=== PATIENT | female | born 1945 | race Caucasian/White ===

== ENCOUNTER 2018-10-30 10:46 | Inpatient (IN) ==
[2018-10-30] MEDS ORDERED: SODIUM CHLORIDE 0.9% 500 ML IV STA (11:10)
[2018-10-30 11:43] LABS: Basophils # 0.1 10*3/uL (0.0-0.2); Basophils % 0.3 % (0.0-0.8); Hematocrit 38.6 VOL% (35.7-47.0); Hemoglobin 13.4 GM/DL (12.0-16.0); Immature Granulocytes Absolute 0.21 #; Lymphocytes # 0.8 10*3/uL (1.4-4.0); Lymphocytes % 3.8 % (21.3-54.2); Mean Corpuscular HGB Conc 34.7 GM/DL (32-36); Mean Corpuscular Hemoglobin 33 PG (27-34); Mean Corpuscular Volume 94.6 FL (87-102); Mean Platelet Volume 11.8 FL (9.6-12.0); Monocytes # 2.1 10*3/uL (0.11-0.8); Monocytes % 10.4 % (1.7-12.7); NRBC # 0.05 10*3/uL; Neutrophils % 84.5 % (38.7-73.9); Platelet Count 219 T/CUMM (130-400); Red Blood Count 4.08 MC/CUMM (3.8-5.5); Red Cell Distribution Width 19.7 % (9.3-17.3); White Blood Count 20.1 T/CUMM (4-12)
[2018-10-30 12:06] LABS: Apearance,Urine Slightly Hazy (Clear); Bilirubin,Urine Negative (Negative); Blood, Urine Negative (Negative); Glucose,Urine (UA) Negative (Negative); Hyaline Casts,Urine 15 /LPF (0-3); Ketones,Urine Negative (Negative); Mucus,Urine Occasional /LPF (Occasional); Nitrite,Urine Negative (Negative); Protein,Urine Negative; Urine Color Amber (Yellow); Urine Specific Gravity 1.017 (1.001-1.035); WBC,Urine 1 /HPF (0-6)
[2018-10-30 12:16] LABS: Albumin 2.1 G/DL (3.4-5.0); Bilirubin,Total 3.1 MG/DL (0.2-1.0); Calcium 10.1 MG/DL (8.5-10.1); Osmolality,Calculated 289.4 MOS/KG (273-304); Potassium 5.4 MMOL/L (3.5-5.1); Total Protein 6.8 G/DL (6.4-8.3)
[2018-10-30 12:27] LABS: Anisocytosis 1+; Band Neutrophils 1 % (0-10); Lymphocytes 4 % (20-55); Macrocytosis 1+; Polychromasia 1+; Segmented Neutrophils 85 % (50-85); Total Cells Counted 100
[2018-10-30 12:28] LABS: Platelet Estimate Normal; Poikilocytosis 1+; Target Cells 1+
[2018-10-30] MEDS ORDERED: cefTRIAXone 1,000 MG in SODIUM CHLORIDE 0.9% 100 ML IV STA (12:53)
[2018-10-30] MEDS ORDERED: SODIUM CHLORIDE 0.9% 1,000 ML IV STA (12:56)
[2018-10-30] MEDS ORDERED: PROMETHAZINE 25 MG TABLET PO PRN (15:38)
[2018-10-30] MEDS ORDERED: DOCUSATE SODIUM 100 MG CAPSULE PO PRN (15:38)
[2018-10-30] MEDS ORDERED: ONDANSETRON 4 MG/2 ML VIAL IV PRN (15:38)
[2018-10-30] MEDS ORDERED: ALBUMIN 25% 25 GM in PREMIX 1 EACH IV ONE (15:38)
[2018-10-30] MEDS ORDERED: ZALEPLON 5 MG CAPSULE PO PRN (15:38)
[2018-10-30] MEDS ORDERED: guaiFENesin/DM ER 600-30 MG TABLET PO PRN (15:38)
[2018-10-30] MEDS ORDERED: hydrALAZINE 20 MG/1 ML VIAL IV PRN (15:38)
[2018-10-30] MEDS ORDERED: ENOXAPARIN 30 MG/0.3 ML SYRINGE SUBCUT SCH (15:38)
[2018-10-30 16:43] LABS: INR 1.2; PT Patient Result 13.1 SECS
[2018-10-30] MEDS: SODIUM CHLORIDE 0.9% 1,000 ML IV SCH (16:50)
[2018-10-30] MEDS: MEROPENEM 500 MG in SODIUM CHLORIDE 0.9% 100 ML IV SCH (17:02)
[2018-10-30 17:04] LABS: Troponin I 0.055 NG/ML (0.00-0.045)
[2018-10-30] MEDS: MIRTAZAPINE 15 MG TABLET PO SCH (20:41)
[2018-10-30] MEDS: CALCIUM (CARBONATE)/VITAMIN D 600 MG-400 UNIT TABLET PO SCH (20:41)
[2018-10-30] MEDS: rOPINIRole 0.25 MG TABLET PO SCH (20:42)
[2018-10-30] MEDS: GLUCOSAMINE 500 MG TABLET PO SCH (20:42)
[2018-10-30] MEDS: LACTULOSE 20 GM/30 ML UDCUP PO SCH (20:43)
[2018-10-30] MEDS ORDERED: ASCORBIC ACID 500 MG TABLET PO SCH (21:00)
[2018-10-30] MEDS ORDERED: [UNRECOGNIZED DRUG - OTHER] PO SCH (21:00)
[2018-10-30] MEDS ORDERED: COENZYME Q10 100 MG CAPSULE PO SCH (21:00)
[2018-10-31 04:48] LABS: Basophils # 0.1 10*3/uL (0.0-0.2); Basophils % 0.3 % (0.0-0.8); Hematocrit 35.7 VOL% (35.7-47.0); Hemoglobin 11.9 GM/DL (12.0-16.0); Immature Granulocytes % 1.1 %; Immature Granulocytes Absolute 0.21 #; Lymphocytes # 1.2 10*3/uL (1.4-4.0); Lymphocytes % 6.1 % (21.3-54.2); Mean Corpuscular HGB Conc 33.3 GM/DL (32-36); Mean Corpuscular Hemoglobin 32 PG (27-34); Mean Corpuscular Volume 96.5 FL (87-102); Mean Platelet Volume 12.5 FL (9.6-12.0); Monocytes # 2.2 10*3/uL (0.11-0.8); Monocytes % 11.3 % (1.7-12.7); NRBC # 0.03 10*3/uL; Neutrophils # 15.5 10*3/uL (1.4-7.4); Neutrophils % 81.2 % (38.7-73.9); Platelet Count 214 T/CUMM (130-400); Red Cell Distribution Width 20.6 % (9.3-17.3); White Blood Count 19.1 T/CUMM (4-12)
[2018-10-31 05:16] LABS: Alanine Aminotransferase 298 U/L (13-56); Albumin 2.5 G/DL (3.4-5.0); Alkaline Phosphatase 1204 U/L (45-117); Aspartate Amino Transferase 1075 U/L (0-37); Blood Urea Nitrogen 81 MG/DL (7-18); Calcium 10.3 MG/DL (8.5-10.1); Cholesterol 166 MG/DL (50-200); Glucose 114 MG/DL (74-106); HDL Cholesterol 11 MG/DL (40-60); Osmolality,Calculated 294.1 MOS/KG (273-304); Potassium 4.9 MMOL/L (3.5-5.1); Risk Ratio 15.09; Sodium 135 MMOL/L (136-145); Total Protein 6.9 G/DL (6.4-8.3); Triglycerides 95 MG/DL (2-150)
[2018-10-31 05:18] LABS: Troponin I 0.048 NG/ML (0.00-0.045)
[2018-10-31] MEDS: SODIUM CHLORIDE 0.9% 1,000 ML IV SCH (06:03)
[2018-10-31] MEDS: MEROPENEM 500 MG in SODIUM CHLORIDE 0.9% 100 ML IV SCH ×2 (06:04→16:59)
[2018-10-31] MEDS ORDERED: MULTIVITAMIN (CENTRUM) TABLET PO SCH (09:00)
[2018-10-31] MEDS: GLUCOSAMINE 500 MG TABLET PO SCH ×2 (11:21→20:50)
[2018-10-31] MEDS: LACTULOSE 20 GM/30 ML UDCUP PO SCH ×2 (11:21→20:50)
[2018-10-31] MEDS: PANTOPRAZOLE 40 MG TABLET PO SCH (11:21)
[2018-10-31] MEDS: CALCIUM (CARBONATE)/VITAMIN D 600 MG-400 UNIT TABLET PO SCH ×2 (11:21→20:50)
[2018-10-31] MEDS: CLINDAMYCIN INJ 300 MG in PREMIX 1 EACH IV SCH ×3 (11:24→22:50)
[2018-10-31 12:22] LABS: Neutrophils,Peritoneal Fluid 51 %
[2018-10-31 12:23] LABS: RBC,Peritoneal Fluid 417 T/CUMM
[2018-10-31 12:45] LABS: Amylase,Peritoneal Fluid 30 U/L; Glucose,Peritoneal Fluid 126 MG/DL; LDH,Peritoneal Fluid 68 U/L; Total Protein,Peritoneal Fluid < 1.0 G/DL
[2018-10-31] MEDS ORDERED: DEXTROSE 5% IV ONE (13:00)
[2018-10-31] MEDS ORDERED: OXALIPLATIN IV ONE (13:00)
[2018-10-31] MEDS ORDERED: diphenhydrAMINE 50 MG/1 ML VIAL IV ONE (13:00)
[2018-10-31] MEDS ORDERED: DEXAMETHASONE 10 MG/1 ML VIAL IV ONE (13:00)
[2018-10-31] MEDS: GRANISETRON 1 MG/1 ML VIAL IV SCH (14:16)
[2018-10-31] MEDS: HYDROCORTISONE 2.5% CREAM 30 GM TUBE TOP SCH (16:37)
[2018-10-31] MEDS: FLUOROURACIL 1,500 MG in SODIUM CHLORIDE 0.9% 1,000 ML IV SCH (18:01)
[2018-10-31] MEDS: rOPINIRole 0.25 MG TABLET PO SCH (20:50)
[2018-10-31] MEDS: MIRTAZAPINE 15 MG TABLET PO SCH (20:50)
[2018-10-31] MEDS: MORPHINE 4 MG/1 ML VIAL IV PRN (20:51)
[2018-11-01] MEDS: SODIUM CHLORIDE 0.9% 1,000 ML IV SCH ×2 (00:45→16:22)
[2018-11-01] MEDS: MEROPENEM 500 MG in SODIUM CHLORIDE 0.9% 100 ML IV SCH ×2 (03:56→16:22)
[2018-11-01 05:04] LABS: Basophils % 0.1 % (0.0-0.8); Hematocrit 31.7 VOL% (35.7-47.0); Hemoglobin 10.6 GM/DL (12.0-16.0); Immature Granulocytes % 0.8 %; Lymphocytes # 0.6 10*3/uL (1.4-4.0); Lymphocytes % 5.1 % (21.3-54.2); Mean Corpuscular HGB Conc 33.4 GM/DL (32-36); Mean Corpuscular Hemoglobin 32 PG (27-34); Mean Corpuscular Volume 96.4 FL (87-102); Mean Platelet Volume 12.5 FL (9.6-12.0); Monocytes # 0.5 10*3/uL (0.11-0.8); Monocytes % 4.2 % (1.7-12.7); Neutrophils % 89.8 % (38.7-73.9); Platelet Count 156 T/CUMM (130-400); Red Blood Count 3.29 MC/CUMM (3.8-5.5); Red Cell Distribution Width 20.5 % (9.3-17.3); White Blood Count 12.3 T/CUMM (4-12)
[2018-11-01] MEDS: CLINDAMYCIN INJ 300 MG in PREMIX 1 EACH IV SCH ×4 (05:41→22:05)
[2018-11-01 05:46] LABS: Albumin 1.9 G/DL (3.4-5.0); Bilirubin,Total 4.1 MG/DL (0.2-1.0); Calcium 9.9 MG/DL (8.5-10.1); Osmolality,Calculated 307.4 MOS/KG (273-304); Potassium 5.2 MMOL/L (3.5-5.1); Total Protein 5.8 G/DL (6.4-8.3)
[2018-11-01] MEDS: CALCIUM (CARBONATE)/VITAMIN D 600 MG-400 UNIT TABLET PO SCH ×2 (10:17→20:34)
[2018-11-01] MEDS: LACTULOSE 20 GM/30 ML UDCUP PO SCH ×2 (10:20→20:35)
[2018-11-01] MEDS: GLUCOSAMINE 500 MG TABLET PO SCH ×2 (10:21→20:35)
[2018-11-01] MEDS: HYDROCORTISONE 2.5% CREAM 30 GM TUBE TOP SCH (10:21)
[2018-11-01] MEDS: GRANISETRON 1 MG/1 ML VIAL IV SCH (10:21)
[2018-11-01] MEDS: PANTOPRAZOLE 40 MG TABLET PO SCH (10:22)
[2018-11-01] MEDS ORDERED: MULTIVITAMIN INJ 10 ML in AMINO ACIDS/DEXT/LYTES 5-15% 2,000 ML IV SCH (17:00)
[2018-11-01] MEDS: FAT EMULSION 20% 250 ML IV SCH (18:29)
[2018-11-01] MEDS: FLUOROURACIL 1,500 MG in SODIUM CHLORIDE 0.9% 1,000 ML IV SCH (18:30)
[2018-11-01] MEDS: rOPINIRole 0.25 MG TABLET PO SCH (20:35)
[2018-11-01] MEDS: MIRTAZAPINE 15 MG TABLET PO SCH (20:35)
[2018-11-02] MEDS: MORPHINE 4 MG/1 ML VIAL IV PRN ×2 (01:38→22:20)
[2018-11-02] MEDS: MEROPENEM 500 MG in SODIUM CHLORIDE 0.9% 100 ML IV SCH ×2 (03:47→15:14)
[2018-11-02 04:26] LABS: Basophils % 0.1 % (0.0-0.8); Hematocrit 37.3 VOL% (35.7-47.0); Hemoglobin 12.7 GM/DL (12.0-16.0); Immature Granulocytes % 1.1 %; Immature Granulocytes Absolute 0.17 #; Lymphocytes # 0.5 10*3/uL (1.4-4.0); Lymphocytes % 3.1 % (21.3-54.2); Mean Corpuscular Hemoglobin 33 PG (27-34); Mean Corpuscular Volume 95.9 FL (87-102); Mean Platelet Volume 12.3 FL (9.6-12.0); Monocytes % 6.3 % (1.7-12.7); Neutrophils # 14.4 10*3/uL (1.4-7.4); Neutrophils % 89.4 % (38.7-73.9); Platelet Count 196 T/CUMM (130-400); Red Blood Count 3.89 MC/CUMM (3.8-5.5); Red Cell Distribution Width 21.2 % (9.3-17.3); White Blood Count 16.1 T/CUMM (4-12)
[2018-11-02 04:38] LABS: Calcium 9.7 MG/DL (8.5-10.1); Osmolality,Calculated 308.7 MOS/KG (273-304); Potassium 4.9 MMOL/L (3.5-5.1); Prealbumin 11.4 MG/DL (20-40)
[2018-11-02 04:52] LABS: Albumin 1.9 G/DL (3.4-5.0); Bilirubin,Total 4.2 MG/DL (0.2-1.0); Calcium 9.5 MG/DL (8.5-10.1); Osmolality,Calculated 307.8 MOS/KG (273-304); Potassium 5.5 MMOL/L (3.5-5.1); Total Protein 5.8 G/DL (6.4-8.3)
[2018-11-02 05:02] LABS: Lymphocytes 1 % (20-55); Segmented Neutrophils 94 % (50-85); Total Cells Counted 100
[2018-11-02 05:03] LABS: Hypochromasia 1+; Platelet Estimate Adequate
[2018-11-02] MEDS: CLINDAMYCIN INJ 300 MG in PREMIX 1 EACH IV SCH (05:53)
[2018-11-02] MEDS: GRANISETRON 1 MG/1 ML VIAL IV SCH (09:54)
[2018-11-02] MEDS: SODIUM CHLORIDE 0.9% 1,000 ML IV SCH (10:00)
[2018-11-02] MEDS: MULTIVITAMIN INJ 10 ML in AMINO ACIDS/DEXT/LYTES 5-15% 2,000 ML IV SCH (17:17)
[2018-11-02] MEDS: LACTULOSE 20 GM/30 ML UDCUP PO SCH ×2 (17:17→21:10)
[2018-11-02] MEDS: FAT EMULSION 20% 250 ML IV SCH (17:18)
[2018-11-02 17:27] LABS: Apearance,Urine CLEAR (Clear); Bilirubin,Urine Negative (Negative); Blood, Urine Negative (Negative); Glucose,Urine (UA) Negative (Negative); Hyaline Casts,Urine 1 /LPF (0-3); Ketones,Urine Negative (Negative); Nitrite,Urine Negative (Negative); Protein,Urine Negative; Urine Color Yellow (Yellow); Urine Specific Gravity 1.016 (1.001-1.035); Urine Urobilinogen < 2.0 EU/DL (0.2-1.0)
[2018-11-02] MEDS: HYDROCORTISONE 2.5% CREAM 30 GM TUBE TOP SCH (18:32)
[2018-11-02] MEDS: GLUCOSAMINE 500 MG TABLET PO SCH ×2 (18:32→21:09)
[2018-11-02] MEDS: CALCIUM (CARBONATE)/VITAMIN D 600 MG-400 UNIT TABLET PO SCH ×2 (18:32→21:10)
[2018-11-02] MEDS: PANTOPRAZOLE 40 MG TABLET PO SCH (18:32)
[2018-11-02] MEDS: rOPINIRole 0.25 MG TABLET PO SCH (21:09)
[2018-11-02] MEDS: MIRTAZAPINE 15 MG TABLET PO SCH (21:09)
[2018-11-02] MEDS ORDERED: SODIUM CHLORIDE 0.65% NASAL SPRAY 45 ML BOTTLE BOTH NARES PRN (22:35)
[2018-11-03] MEDS: MORPHINE 4 MG/1 ML VIAL IV PRN ×4 (03:23→22:55)
[2018-11-03] MEDS: MEROPENEM 500 MG in SODIUM CHLORIDE 0.9% 100 ML IV SCH ×2 (03:32→15:06)
[2018-11-03 04:45] LABS: Basophils % 0.1 % (0.0-0.8); Hematocrit 37.7 VOL% (35.7-47.0); Hemoglobin 12.8 GM/DL (12.0-16.0); Immature Granulocytes % 0.7 %; Immature Granulocytes Absolute 0.09 #; Lymphocytes # 0.7 10*3/uL (1.4-4.0); Lymphocytes % 5.8 % (21.3-54.2); Mean Corpuscular Hemoglobin 32 PG (27-34); Mean Corpuscular Volume 95.2 FL (87-102); Mean Platelet Volume 12.8 FL (9.6-12.0); Monocytes # 0.3 10*3/uL (0.11-0.8); NRBC # 0.02 10*3/uL; Neutrophils # 11.3 10*3/uL (1.4-7.4); Neutrophils % 91.4 % (38.7-73.9); Platelet Count 163 T/CUMM (130-400); Red Blood Count 3.96 MC/CUMM (3.8-5.5); Red Cell Distribution Width 21.1 % (9.3-17.3); White Blood Count 12.3 T/CUMM (4-12)
[2018-11-03 05:19] LABS: Albumin 1.9 G/DL (3.4-5.0); Bilirubin,Total 3.2 MG/DL (0.2-1.0); Calcium 9.7 MG/DL (8.5-10.1); Osmolality,Calculated 310.4 MOS/KG (273-304)
[2018-11-03 05:24] LABS: Lymphocytes 6 % (20-55); Segmented Neutrophils 93 % (50-85); Total Cells Counted 100
[2018-11-03 05:25] LABS: Platelet Estimate Adequate; Polychromasia Few
[2018-11-03] MEDS ORDERED: METOPROLOL TARTRATE 5 MG/5 ML VIAL IV ONE (08:26)
[2018-11-03] MEDS: CALCIUM (CARBONATE)/VITAMIN D 600 MG-400 UNIT TABLET PO SCH ×2 (11:21→23:29)
[2018-11-03] MEDS: GLUCOSAMINE 500 MG TABLET PO SCH ×2 (11:22→23:29)
[2018-11-03] MEDS: HYDROCORTISONE 2.5% CREAM 30 GM TUBE TOP SCH (11:22)
[2018-11-03] MEDS: PANTOPRAZOLE 40 MG TABLET PO SCH (11:22)
[2018-11-03] MEDS ORDERED: FUROSEMIDE 40 MG/4 ML VIAL IV ONE (12:39)
[2018-11-03] MEDS ORDERED: ALBUMIN 25% 25 GM in PREMIX 1 EACH IV ONE (13:00)
[2018-11-03] MEDS: GRANISETRON 1 MG/1 ML VIAL IV SCH (13:09)
[2018-11-03] MEDS: FAT EMULSION 20% 250 ML IV SCH (17:04)
[2018-11-03] MEDS: MULTIVITAMIN INJ 10 ML in AMINO ACIDS/DEXT/LYTES 5-15% 2,000 ML IV SCH (17:05)
[2018-11-03] MEDS: LACTULOSE 20 GM/30 ML UDCUP PO SCH ×2 (17:59→23:29)
[2018-11-03] MEDS: MIRTAZAPINE 15 MG TABLET PO SCH (23:29)
[2018-11-03] MEDS: rOPINIRole 0.25 MG TABLET PO SCH (23:29)
[2018-11-04] MEDS: SODIUM CHLORIDE 0.9% 1,000 ML IV SCH (00:47)
[2018-11-04] MEDS: MORPHINE 4 MG/1 ML VIAL IV PRN ×3 (02:30→21:43)
[2018-11-04] MEDS: MEROPENEM 500 MG in SODIUM CHLORIDE 0.9% 100 ML IV SCH ×2 (04:08→15:49)
[2018-11-04 04:44] LABS: Basophils % 0.1 % (0.0-0.8); Hematocrit 34.3 VOL% (35.7-47.0); Hemoglobin 11.5 GM/DL (12.0-16.0); Immature Granulocytes % 0.4 %; Immature Granulocytes Absolute 0.04 #; Lymphocytes # 0.9 10*3/uL (1.4-4.0); Lymphocytes % 9.7 % (21.3-54.2); Mean Corpuscular HGB Conc 33.5 GM/DL (32-36); Mean Corpuscular Hemoglobin 32 PG (27-34); Mean Corpuscular Volume 96.3 FL (87-102); Mean Platelet Volume 13.1 FL (9.6-12.0); Monocytes # 0.1 10*3/uL (0.11-0.8); Monocytes % 1.2 % (1.7-12.7); NRBC # 0.03 10*3/uL; Neutrophils % 88.6 % (38.7-73.9); Red Blood Count 3.56 MC/CUMM (3.8-5.5); Red Cell Distribution Width 20.9 % (9.3-17.3)
[2018-11-04 04:52] LABS: Platelet Count 81 T/CUMM (130-400)
[2018-11-04 04:59] LABS: Calcium 9.9 MG/DL (8.5-10.1); Osmolality,Calculated 309.1 MOS/KG (273-304); Potassium 4.8 MMOL/L (3.5-5.1)
[2018-11-04 05:02] LABS: Albumin 2.2 G/DL (3.4-5.0); Bilirubin,Total 3.9 MG/DL (0.2-1.0); Calcium 9.8 MG/DL (8.5-10.1); Potassium 4.9 MMOL/L (3.5-5.1); Total Protein 5.7 G/DL (6.4-8.3)
[2018-11-04 05:35] LABS: Anisocytosis 1+; Macrocytosis 1+; Target Cells Few
[2018-11-04 05:36] LABS: Hypochromasia 1+
[2018-11-04 05:39] LABS: Pappenheimer Bodies Slight
[2018-11-04 05:40] LABS: Giant Platelets Few; Platelet Estimate Decreased
[2018-11-04] MEDS: CALCIUM (CARBONATE)/VITAMIN D 600 MG-400 UNIT TABLET PO SCH ×2 (09:16→21:41)
[2018-11-04] MEDS: LACTULOSE 20 GM/30 ML UDCUP PO SCH ×2 (09:16→21:41)
[2018-11-04] MEDS: HYDROCORTISONE 2.5% CREAM 30 GM TUBE TOP SCH (09:16)
[2018-11-04] MEDS: GLUCOSAMINE 500 MG TABLET PO SCH ×2 (09:16→21:42)
[2018-11-04] MEDS: PANTOPRAZOLE 40 MG TABLET PO SCH (09:16)
[2018-11-04] MEDS ORDERED: DILTIAZEM 50 MG/10 ML VIAL IV SCH (11:00)
[2018-11-04] MEDS ORDERED: DIGOXIN 0.5 MG/2 ML AMP IV ONE ×3 (11:01→15:00)
[2018-11-04] MEDS: ALBUMIN 25% 25 GM in PREMIX 1 EACH IV SCH ×2 (11:40→23:31)
[2018-11-04] MEDS: FUROSEMIDE 20 MG/2 ML VIAL IV SCH (13:04)
[2018-11-04] MEDS: FAT EMULSION 20% 250 ML IV SCH (15:50)
[2018-11-04] MEDS: MULTIVITAMIN INJ 10 ML in AMINO ACIDS/DEXT/LYTES 5-15% 2,000 ML IV SCH (16:30)
[2018-11-04] MEDS: MIRTAZAPINE 15 MG TABLET PO SCH (21:41)
[2018-11-04] MEDS: rOPINIRole 0.25 MG TABLET PO SCH (21:42)
[2018-11-05] MEDS: FUROSEMIDE 20 MG/2 ML VIAL IV SCH ×2 (00:34→11:55)
[2018-11-05] MEDS: MORPHINE 4 MG/1 ML VIAL IV PRN ×4 (01:40→22:03)
[2018-11-05] MEDS: MEROPENEM 500 MG in SODIUM CHLORIDE 0.9% 100 ML IV SCH ×2 (04:27→15:56)
[2018-11-05 05:31] LABS: Basophils % 0.2 % (0.0-0.8); Eosinophils % 0.5 % (0.00-10.9); Hematocrit 30.9 VOL% (35.7-47.0); Hemoglobin 10.2 GM/DL (12.0-16.0); Immature Granulocytes % 1.3 %; Immature Granulocytes Absolute 0.08 #; Lymphocytes # 0.8 10*3/uL (1.4-4.0); Lymphocytes % 13.1 % (21.3-54.2); Mean Corpuscular Hemoglobin 32 PG (27-34); Mean Corpuscular Volume 96.6 FL (87-102); Monocytes # 0.1 10*3/uL (0.11-0.8); Monocytes % 1.6 % (1.7-12.7); NRBC # 0.08 10*3/uL; Neutrophils # 5.2 10*3/uL (1.4-7.4); Neutrophils % 83.3 % (38.7-73.9); Red Cell Distribution Width 20.7 % (9.3-17.3); White Blood Count 6.3 T/CUMM (4-12)
[2018-11-05 05:32] LABS: Platelet Count 54 T/CUMM (130-400)
[2018-11-05 05:50] LABS: Hypochromasia 1+; Platelet Estimate Decreased; Target Cells Few
[2018-11-05 05:51] LABS: Macrocytosis Slight
[2018-11-05 06:01] LABS: Albumin 2.7 G/DL (3.4-5.0); Bilirubin,Total 5.2 MG/DL (0.2-1.0); Calcium 10.1 MG/DL (8.5-10.1); Osmolality,Calculated 318.6 MOS/KG (273-304); Potassium 4.6 MMOL/L (3.5-5.1); Total Protein 5.4 G/DL (6.4-8.3)
[2018-11-05] MEDS: HYDROCORTISONE 2.5% CREAM 30 GM TUBE TOP SCH (08:59)
[2018-11-05] MEDS: GLUCOSAMINE 500 MG TABLET PO SCH ×2 (08:59→21:52)
[2018-11-05] MEDS: PANTOPRAZOLE 40 MG TABLET PO SCH (08:59)
[2018-11-05] MEDS: DIGOXIN 0.5 MG/2 ML AMP IV SCH (08:59)
[2018-11-05] MEDS: LACTULOSE 20 GM/30 ML UDCUP PO SCH ×2 (08:59→21:51)
[2018-11-05] MEDS: CALCIUM (CARBONATE)/VITAMIN D 600 MG-400 UNIT TABLET PO SCH ×2 (08:59→21:50)
[2018-11-05] MEDS: ALBUMIN 25% 25 GM in PREMIX 1 EACH IV SCH ×2 (10:53→23:10)
[2018-11-05] MEDS: FAT EMULSION 20% 250 ML IV SCH (15:56)
[2018-11-05] MEDS: MULTIVITAMIN INJ 10 ML in AMINO ACIDS/DEXT/LYTES 5-15% 2,000 ML IV SCH (17:16)
[2018-11-05] MEDS: rOPINIRole 0.25 MG TABLET PO SCH (21:51)
[2018-11-05] MEDS: MIRTAZAPINE 15 MG TABLET PO SCH (21:57)
[2018-11-06] MEDS: FUROSEMIDE 20 MG/2 ML VIAL IV SCH ×3 (00:26→23:28)
[2018-11-06] MEDS: MORPHINE 4 MG/1 ML VIAL IV PRN ×4 (01:10→23:34)
[2018-11-06] MEDS: MEROPENEM 500 MG in SODIUM CHLORIDE 0.9% 100 ML IV SCH (03:29)
[2018-11-06 05:12] LABS: Basophils % 0.1 % (0.0-0.8); Eosinophils # 0.1 10*3/uL (0.0-0.87); Eosinophils % 0.9 % (0.00-10.9); Hematocrit 29.5 VOL% (35.7-47.0); Hemoglobin 9.8 GM/DL (12.0-16.0); Immature Granulocytes Absolute 0.09 #; Lymphocytes # 0.9 10*3/uL (1.4-4.0); Lymphocytes % 9.8 % (21.3-54.2); Mean Corpuscular HGB Conc 33.2 GM/DL (32-36); Mean Corpuscular Hemoglobin 33 PG (27-34); Monocytes # 0.1 10*3/uL (0.11-0.8); Monocytes % 1.5 % (1.7-12.7); NRBC # 0.11 10*3/uL; Neutrophils # 7.7 10*3/uL (1.4-7.4); Neutrophils % 86.7 % (38.7-73.9); Red Blood Count 3.01 MC/CUMM (3.8-5.5); Red Cell Distribution Width 20.7 % (9.3-17.3); White Blood Count 8.9 T/CUMM (4-12)
[2018-11-06 05:16] LABS: Platelet Count 40 T/CUMM (130-400)
[2018-11-06 05:18] LABS: INR 1.4
[2018-11-06 05:42] LABS: Band Neutrophils 2 % (0-10); Hypochromasia 2+; Lymphocytes 6 % (20-55); Nucleated Red Blood Cells 1 (0-5); Platelet Estimate Decreased; Segmented Neutrophils 91 % (50-85); Target Cells 2+; Total Cells Counted 100
[2018-11-06 05:45] LABS: Albumin 2.9 G/DL (3.4-5.0); Bilirubin,Total 6.5 MG/DL (0.2-1.0); Calcium 10.6 MG/DL (8.5-10.1); Osmolality,Calculated 318.6 MOS/KG (273-304); Potassium 4.8 MMOL/L (3.5-5.1); Total Protein 5.4 G/DL (6.4-8.3)
[2018-11-06] MEDS: GLUCOSAMINE 500 MG TABLET PO SCH ×2 (09:26→21:03)
[2018-11-06] MEDS: PANTOPRAZOLE 40 MG TABLET PO SCH (09:26)
[2018-11-06] MEDS: DIGOXIN 0.5 MG/2 ML AMP IV SCH (09:26)
[2018-11-06] MEDS: HYDROCORTISONE 2.5% CREAM 30 GM TUBE TOP SCH (09:26)
[2018-11-06] MEDS: CALCIUM (CARBONATE)/VITAMIN D 600 MG-400 UNIT TABLET PO SCH ×2 (09:26→21:03)
[2018-11-06] MEDS: ALBUMIN 25% 25 GM in PREMIX 1 EACH IV SCH ×2 (11:17→22:23)
[2018-11-06] MEDS: METOPROLOL TARTRATE 5 MG/5 ML VIAL IV SCH ×3 (11:17→22:20)
[2018-11-06] MEDS: FAT EMULSION 20% 250 ML IV SCH (14:59)
[2018-11-06] MEDS: MULTIVITAMIN INJ 10 ML in AMINO ACIDS/DEXT/LYTES 5-15% 2,000 ML IV SCH (16:58)
[2018-11-06] MEDS: rOPINIRole 0.25 MG TABLET PO SCH (21:03)
[2018-11-07 04:58] LABS: Calcium 10.7 MG/DL (8.5-10.1); Osmolality,Calculated 325.4 MOS/KG (273-304); Potassium 5.4 MMOL/L (3.5-5.1)
[2018-11-07] MEDS: METOPROLOL TARTRATE 5 MG/5 ML VIAL IV SCH ×3 (06:12→22:03)
[2018-11-07 06:53] LABS: Basophils % 0.2 % (0.0-0.8); Eosinophils # 0.1 10*3/uL (0.0-0.87); Eosinophils % 0.6 % (0.00-10.9); Hematocrit 28.8 VOL% (35.7-47.0); Hemoglobin 9.4 GM/DL (12.0-16.0); Immature Granulocytes % 1.6 %; Immature Granulocytes Absolute 0.16 #; Lymphocytes # 0.9 10*3/uL (1.4-4.0); Lymphocytes % 8.8 % (21.3-54.2); Mean Corpuscular HGB Conc 32.6 GM/DL (32-36); Mean Corpuscular Hemoglobin 32 PG (27-34); Mean Corpuscular Volume 99.3 FL (87-102); Mean Platelet Volume 13.5 FL (9.6-12.0); Monocytes # 0.3 10*3/uL (0.11-0.8); Monocytes % 3.2 % (1.7-12.7); NRBC # 0.05 10*3/uL; Neutrophils # 8.5 10*3/uL (1.4-7.4); Neutrophils % 85.6 % (38.7-73.9); Red Cell Distribution Width 20.9 % (9.3-17.3); White Blood Count 9.9 T/CUMM (4-12)
[2018-11-07 06:54] LABS: Platelet Count 52 T/CUMM (130-400)
[2018-11-07 07:12] LABS: Eosinophils 2 % (0-10); Hypochromasia 1+; Lymphocytes 8 % (20-55); Nucleated Red Blood Cells 2 (0-5); Platelet Estimate Decreased; Segmented Neutrophils 87 % (50-85); Total Cells Counted 100
[2018-11-07 07:13] LABS: Macrocytosis Slight; Target Cells Few
[2018-11-07 07:19] LABS: Bilirubin,Total 6.9 MG/DL (0.2-1.0); Calcium 10.6 MG/DL (8.5-10.1); Osmolality,Calculated 323.6 MOS/KG (273-304); Potassium 5.4 MMOL/L (3.5-5.1); Total Protein 5.2 G/DL (6.4-8.3)
[2018-11-07] MEDS: FUROSEMIDE 20 MG/2 ML VIAL IV SCH (12:25)
[2018-11-07] MEDS: ALBUMIN 25% 25 GM in PREMIX 1 EACH IV SCH ×2 (12:31→23:34)
[2018-11-07] MEDS: HYDROCORTISONE 2.5% CREAM 30 GM TUBE TOP SCH (14:14)
[2018-11-07] MEDS: PANTOPRAZOLE 40 MG TABLET PO SCH (14:14)
[2018-11-07] MEDS: GLUCOSAMINE 500 MG TABLET PO SCH ×2 (14:14→22:03)
[2018-11-07] MEDS: CALCIUM (CARBONATE)/VITAMIN D 600 MG-400 UNIT TABLET PO SCH ×2 (14:14→22:02)
[2018-11-07] MEDS: FAT EMULSION 20% 250 ML IV SCH (16:21)
[2018-11-07] MEDS ORDERED: MULTIVITAMIN IV SCH (17:00)
[2018-11-07] MEDS ORDERED: AMINO ACIDS IV SCH (17:00)
[2018-11-07] MEDS ORDERED: DEXTROSE IV SCH (17:00)
[2018-11-07] MEDS: rOPINIRole 0.25 MG TABLET PO SCH (22:03)
[2018-11-08] MEDS: FUROSEMIDE 20 MG/2 ML VIAL IV SCH ×2 (00:34→12:10)
[2018-11-08 05:26] LABS: Basophils % 0.2 % (0.0-0.8); Eosinophils % 0.3 % (0.00-10.9); Hematocrit 30.6 VOL% (35.7-47.0); Hemoglobin 10.2 GM/DL (12.0-16.0); Immature Granulocytes % 0.8 %; Immature Granulocytes Absolute 0.09 #; Lymphocytes # 0.6 10*3/uL (1.4-4.0); Lymphocytes % 5.5 % (21.3-54.2); Mean Corpuscular HGB Conc 33.3 GM/DL (32-36); Mean Corpuscular Hemoglobin 33 PG (27-34); Mean Corpuscular Volume 97.5 FL (87-102); Mean Platelet Volume 13.3 FL (9.6-12.0); Monocytes # 0.4 10*3/uL (0.11-0.8); Monocytes % 3.4 % (1.7-12.7); NRBC # 0.05 10*3/uL; Neutrophils # 10.2 10*3/uL (1.4-7.4); Neutrophils % 89.8 % (38.7-73.9); Platelet Count 68 T/CUMM (130-400); Red Blood Count 3.14 MC/CUMM (3.8-5.5); Red Cell Distribution Width 21.3 % (9.3-17.3); White Blood Count 11.4 T/CUMM (4-12)
[2018-11-08 05:49] LABS: Albumin 3.7 G/DL (3.4-5.0); Bilirubin,Total 8.6 MG/DL (0.2-1.0); Calcium 11.1 MG/DL (8.5-10.1); Calcium 11.2 MG/DL (8.5-10.1); Osmolality,Calculated 331.3 MOS/KG (273-304); Osmolality,Calculated 332.3 MOS/KG (273-304); Potassium 4.8 MMOL/L (3.5-5.1)
[2018-11-08 06:12] LABS: Band Neutrophils 2 % (0-10); Lymphocytes 3 % (20-55); Platelet Estimate Decreased; Segmented Neutrophils 93 % (50-85); Target Cells 2+; Total Cells Counted 100
[2018-11-08] MEDS: METOPROLOL TARTRATE 5 MG/5 ML VIAL IV SCH ×3 (06:27→23:04)
[2018-11-08] MEDS: MEROPENEM 1,000 MG in SODIUM CHLORIDE 0.9% 100 ML IV SCH ×2 (09:24→17:57)
[2018-11-08] MEDS: PANTOPRAZOLE 40 MG TABLET PO SCH (09:33)
[2018-11-08] MEDS: CALCIUM (CARBONATE)/VITAMIN D 600 MG-400 UNIT TABLET PO SCH ×2 (09:33→20:51)
[2018-11-08] MEDS: GLUCOSAMINE 500 MG TABLET PO SCH ×2 (09:33→20:51)
[2018-11-08] MEDS: ALBUMIN 25% 25 GM in PREMIX 1 EACH IV SCH ×2 (11:31→23:05)
[2018-11-08] MEDS: HYDROCORTISONE 2.5% CREAM 30 GM TUBE TOP SCH (11:32)
[2018-11-08] MEDS: MORPHINE 4 MG/1 ML VIAL IV PRN ×3 (11:42→21:15)
[2018-11-08] MEDS: ACETAMINOPHEN 650 MG SUPP RECTAL PRN (12:10)
[2018-11-08] MEDS: FAT EMULSION 20% 250 ML IV SCH (17:04)
[2018-11-08] MEDS: rOPINIRole 0.25 MG TABLET PO SCH (20:51)
[2018-11-09] MEDS: FUROSEMIDE 20 MG/2 ML VIAL IV SCH ×2 (00:16→11:28)
[2018-11-09] MEDS: MORPHINE 4 MG/1 ML VIAL IV PRN ×4 (03:00→19:42)
[2018-11-09] MEDS: ACETAMINOPHEN 650 MG SUPP RECTAL PRN (03:07)
[2018-11-09 04:56] LABS: Basophils % 0.2 % (0.0-0.8); Hematocrit 27.9 VOL% (35.7-47.0); Hemoglobin 8.8 GM/DL (12.0-16.0); Immature Granulocytes % 0.6 %; Immature Granulocytes Absolute 0.05 #; Lymphocytes # 0.5 10*3/uL (1.4-4.0); Lymphocytes % 5.5 % (21.3-54.2); Mean Corpuscular HGB Conc 31.5 GM/DL (32-36); Mean Corpuscular Hemoglobin 32 PG (27-34); Mean Platelet Volume 13.6 FL (9.6-12.0); Monocytes # 0.3 10*3/uL (0.11-0.8); Monocytes % 3.9 % (1.7-12.7); NRBC # 0.06 10*3/uL; Neutrophils # 7.7 10*3/uL (1.4-7.4); Neutrophils % 89.8 % (38.7-73.9); Platelet Count 78 T/CUMM (130-400); Red Blood Count 2.79 MC/CUMM (3.8-5.5); Red Cell Distribution Width 22.1 % (9.3-17.3); White Blood Count 8.5 T/CUMM (4-12)
[2018-11-09 05:27] LABS: Albumin 3.5 G/DL (3.4-5.0); Calcium 10.5 MG/DL (8.5-10.1); Osmolality,Calculated 341.1 MOS/KG (273-304); Potassium 4.9 MMOL/L (3.5-5.1); Total Protein 5.5 G/DL (6.4-8.3)
[2018-11-09] MEDS: MEROPENEM 1,000 MG in SODIUM CHLORIDE 0.9% 100 ML IV SCH ×2 (05:38→17:50)
[2018-11-09] MEDS: METOPROLOL TARTRATE 5 MG/5 ML VIAL IV SCH ×3 (05:38→23:35)
[2018-11-09 06:12] LABS: Band Neutrophils 6 % (0-10); Lymphocytes 5 % (20-55); Nucleated Red Blood Cells 1 (0-5); Segmented Neutrophils 86 % (50-85); Total Cells Counted 100
[2018-11-09 06:13] LABS: Anisocytosis 1+; Hypochromasia 1+
[2018-11-09 06:14] LABS: Platelet Estimate Decreased; Target Cells 1+; Tear Drop Cells Few
[2018-11-09] MEDS ORDERED: DEXTROSE 50% 25 GM/50 ML SYRINGE IV PRN (06:36)
[2018-11-09] MEDS: ALBUMIN 25% 25 GM in PREMIX 1 EACH IV SCH (10:14)
[2018-11-09] MEDS: GLUCOSAMINE 500 MG TABLET PO SCH ×2 (11:00→22:21)
[2018-11-09] MEDS: PANTOPRAZOLE 40 MG TABLET PO SCH (11:00)
[2018-11-09] MEDS: CALCIUM (CARBONATE)/VITAMIN D 600 MG-400 UNIT TABLET PO SCH ×2 (11:00→22:22)
[2018-11-09] MEDS ORDERED: DEXT 5% NACL 0.45% KCL 20 MEQ 20 MEQ/1,000 ML BAG IV SCH ×2 (11:00→18:30)
[2018-11-09] MEDS: LINEZOLID INJ 600 MG in PREMIX 1 EACH IV SCH (11:29)
[2018-11-09] MEDS: HYDROCORTISONE 2.5% CREAM 30 GM TUBE TOP SCH (11:29)
[2018-11-09] MEDS: FAT EMULSION 20% 250 ML IV SCH (13:38)
[2018-11-09] MEDS: rOPINIRole 0.25 MG TABLET PO SCH (22:21)
[2018-11-09] MEDS: DEXT 5% NACL 0.45% KCL 20 MEQ 20 MEQ/1,000 ML BAG IV SCH (22:27)
[2018-11-10] MEDS: MORPHINE 4 MG/1 ML VIAL IV PRN ×3 (00:19→21:37)
[2018-11-10] MEDS: ALBUMIN 25% 25 GM in PREMIX 1 EACH IV SCH ×3 (01:07→22:38)
[2018-11-10] MEDS: FUROSEMIDE 20 MG/2 ML VIAL IV SCH ×3 (02:06→23:38)
[2018-11-10] MEDS: LINEZOLID INJ 600 MG in PREMIX 1 EACH IV SCH ×3 (02:08→23:40)
[2018-11-10 03:46] LABS: Basophils % 0.3 % (0.0-0.8); Eosinophils % 0.3 % (0.00-10.9); Hematocrit 24.2 VOL% (35.7-47.0); Hemoglobin 7.7 GM/DL (12.0-16.0); Immature Granulocytes % 1.8 %; Immature Granulocytes Absolute 0.07 #; Lymphocytes # 0.6 10*3/uL (1.4-4.0); Lymphocytes % 14.7 % (21.3-54.2); Mean Corpuscular HGB Conc 31.8 GM/DL (32-36); Mean Corpuscular Hemoglobin 32 PG (27-34); Mean Corpuscular Volume 101.7 FL (87-102); Mean Platelet Volume 13.8 FL (9.6-12.0); Monocytes # 0.2 10*3/uL (0.11-0.8); Monocytes % 6.2 % (1.7-12.7); NRBC # 0.08 10*3/uL; Neutrophils % 76.7 % (38.7-73.9); Red Blood Count 2.38 MC/CUMM (3.8-5.5); Red Cell Distribution Width 22.1 % (9.3-17.3); White Blood Count 3.9 T/CUMM (4-12)
[2018-11-10 03:47] LABS: Platelet Count 69 T/CUMM (130-400)
[2018-11-10 04:02] LABS: Albumin 3.4 G/DL (3.4-5.0); Bilirubin,Total 6.6 MG/DL (0.2-1.0); Calcium 9.3 MG/DL (8.5-10.1); Osmolality,Calculated 351.4 MOS/KG (273-304); Potassium 5.5 MMOL/L (3.5-5.1); Total Protein 4.9 G/DL (6.4-8.3)
[2018-11-10 04:30] LABS: Band Neutrophils 6 % (0-10); Lymphocytes 15 % (20-55); Metamyelocytes 6 %; Myelocytes 1 %; Total Cells Counted 100
[2018-11-10 04:38] LABS: Hypochromasia 1+; Platelet Estimate Decreased; Polychromasia Few; Target Cells 1+
[2018-11-10 04:40] LABS: Tear Drop Cells Few
[2018-11-10 04:41] LABS: Segmented Neutrophils 68 % (50-85)
[2018-11-10] MEDS: MEROPENEM 1,000 MG in SODIUM CHLORIDE 0.9% 100 ML IV SCH ×2 (05:58→17:37)
[2018-11-10] MEDS: METOPROLOL TARTRATE 5 MG/5 ML VIAL IV SCH ×3 (07:17→23:07)
[2018-11-10] MEDS: CALCIUM (CARBONATE)/VITAMIN D 600 MG-400 UNIT TABLET PO SCH ×2 (09:59→21:44)
[2018-11-10] MEDS: GLUCOSAMINE 500 MG TABLET PO SCH ×2 (09:59→21:43)
[2018-11-10] MEDS: HYDROCORTISONE 2.5% CREAM 30 GM TUBE TOP SCH (09:59)
[2018-11-10] MEDS: PANTOPRAZOLE 40 MG TABLET PO SCH (10:00)
[2018-11-10] MEDS ORDERED: SODIUM CHLORIDE 0.9% 1,000 ML IV PRN (11:27)
[2018-11-10] MEDS ORDERED: DEXTROSE 5% NACL 0.45% 1,000 ML IV SCH (12:00)
[2018-11-10] MEDS ORDERED: FLUCONAZOLE INJ 200 MG in PREMIX 1 EACH IV SCH (12:30)
[2018-11-10] MEDS: MICAFUNGIN 100 MG in SODIUM CHLORIDE 0.9% 100 ML IV SCH (14:04)
[2018-11-10] MEDS: FAT EMULSION 20% 250 ML IV SCH (14:33)
[2018-11-10] MEDS: rOPINIRole 0.25 MG TABLET PO SCH (21:43)
[2018-11-11] MEDS: MORPHINE 4 MG/1 ML VIAL IV PRN ×3 (00:14→11:25)
[2018-11-11 05:02] LABS: Basophils % 0.8 % (0.0-0.8); Eosinophils % 0.8 % (0.00-10.9); Hemoglobin 10.6 GM/DL (12.0-16.0); Immature Granulocytes % 9.1 %; Immature Granulocytes Absolute 0.36 #; Lymphocytes # 0.9 10*3/uL (1.4-4.0); Lymphocytes % 23.7 % (21.3-54.2); Mean Corpuscular HGB Conc 32.1 GM/DL (32-36); Mean Corpuscular Hemoglobin 32 PG (27-34); Monocytes # 0.3 10*3/uL (0.11-0.8); Monocytes % 7.6 % (1.7-12.7); NRBC # 0.26 10*3/uL; Neutrophils # 2.3 10*3/uL (1.4-7.4); Platelet Count 70 T/CUMM (130-400)
[2018-11-11] MEDS: MEROPENEM 1,000 MG in SODIUM CHLORIDE 0.9% 100 ML IV SCH (05:20)
[2018-11-11 05:39] LABS: Albumin 3.7 G/DL (3.4-5.0); Band Neutrophils 9 % (0-10); Bilirubin,Total 8.9 MG/DL (0.2-1.0); Hypochromasia 1+; Lymphocytes 14 % (20-55); Nucleated Red Blood Cells 7 (0-5); Osmolality,Calculated 353.7 MOS/KG (273-304); Platelet Estimate Decreased; Segmented Neutrophils 64 % (50-85); Total Cells Counted 100; Total Protein 5.6 G/DL (6.4-8.3)
[2018-11-11 05:40] LABS: Target Cells Slight
[2018-11-11 05:51] LABS: Potassium 6.8 MMOL/L (3.5-5.1)
[2018-11-11] MEDS: METOPROLOL TARTRATE 5 MG/5 ML VIAL IV SCH ×2 (06:58→14:14)
[2018-11-11] MEDS: LINEZOLID INJ 600 MG in PREMIX 1 EACH IV SCH (10:23)
[2018-11-11] MEDS: GLUCOSAMINE 500 MG TABLET PO SCH (10:42)
[2018-11-11] MEDS: SODIUM POLYSTYRENE SULFATE 15 GM/60 ML BOTTLE PO SCH ×2 (10:42→15:54)
[2018-11-11] MEDS: CALCIUM (CARBONATE)/VITAMIN D 600 MG-400 UNIT TABLET PO SCH (10:42)
[2018-11-11] MEDS: PANTOPRAZOLE 40 MG TABLET PO SCH (10:43)
[2018-11-11] MEDS: HYDROCORTISONE 2.5% CREAM 30 GM TUBE TOP SCH (10:43)
[2018-11-11] MEDS: DEXT 5% NACL 0.45% KCL 20 MEQ 20 MEQ/1,000 ML BAG IV SCH (12:31)
[2018-11-11 13:15] VITALS: BP 100/42
[2018-11-11] MEDS: MICAFUNGIN 100 MG in SODIUM CHLORIDE 0.9% 100 ML IV SCH (14:14)
== END 2018-11-11 14:51 | disposition expired | DRG 435 ==
LOC: EDBD → EDUNIT# → N.ED 10:46 → SUATTDRO 13:34 → N.EDINP 13:34 → N.2E 15:38 → N.4E 10-31 09:06
PROVIDERS: ADMIT Internal Medicine; ATTEND Specialist